=== PATIENT | female | born 1965 | race Caucasian/White ===

== ENCOUNTER 2024-09-30 17:02 | Emergency (ER) | payer MEDICAID, SELFPAY ==
[2024-09-30 17:04] VITALS: BP 164/67; PULSE 106; RESP 18; TEMP 35.9; O2SAT 98; BMI 20.7
--- NOTE | 2024-09-30 17:24 | EKG12_ITS ---
Test Reason : Blood Pressure : */* mmHG Vent. Rate : 62 BPM Atrial Rate : 62 BPM P-R Int : 138 ms QRS Dur : 86 ms QT Int : 412 ms P-R-T Axes : 42 28 47 degrees QTcB Int : 418 ms Normal sinus rhythm Normal ECG Confirmed by DANILO CARTER, SEDRICK ([id number]), purchase request editor ANDIE FERRERA ([id number]) on 10/01/2024 11:11:31 AM Referred By: Confirmed By: SEDRICK CARRASCO MD
--- NOTE | 2024-09-30 17:35 | EX.ED.DYSGE1 ---
HPI History of Present Illness Chief Complaint: Abn Labs Detail of Chief Complaint: My labs are abnormal. Informant: patient and spouse/S.O. Onset/Context/Timing Onset: - (Blood test results are abnormal. She does not feel which tests were abnormal) Context: - (Unknown) Timing: - (Unknown) Quality: Unknown Location: Unknown Current Severity: Unknown Maximum Severity: Unknown Worsened by: Nothing Relieved by: Nothing Associated Symptoms Associated Symptoms: Polyuria, polydipsia and blood sugars greater than 400 for greater than 1 m Narrative Narrative: Patient is a 59-year-old woman with type 2 diabetes on insulin regimen who had blood work done at [place] [facility] [place]. She was called and told her blood work is abnormal. They were upset that she came here. She informed that her insurance coverage is through the hospital. She does endorse smoking. She denies drinking. She does use marijuana. She has not used marijuana in 1 week. She is uncertain of all of her meds. Patient states last week she had fever, subjective, chills, decreased appetite and decreased intake. She has not had fever or chills since last week. She denies headache, photophobia, change in vision, ringing or ears or sore throat. She denies rhinorrhea, congestion or postnasal drainage. She does endorse nonproductive cough. She denies chest discomfort. She denies abdominal pain, nausea, vomiting or diarrhea. She denies dysuria, hematuria or urgency. Patient does endorse polyuria, polydipsia, nocturia, thirst and dry mouth; she denies orthostatic symptoms. Prior similar symptoms: Yes Recent Illness/Hospitalization: No PFSH PFS Medical History (Updated 09/30/24 @ 22:[address] Roberto Carlos Jasso MD) Type 2 diabetes mellitus Home Medications ?Medication ?Instructions ?Recorded ?Last Taken ?Type nitrofurantoin 100 mg PO Q12 #14 CAPSULES 09/30/24 Unknown Rx monohydrate/macrocrystals 100 mg capsule Allergy/AdvReac Type Severity Reaction Status Date / Time No Known Allergies Allergy Verified 09/30/24 17:03 Surgical History (Updated 09/30/24 @ 17:44 by Chandni Pratt) H/O tubal ligation Social History (Updated 09/30/24 @ 17:[address] Roberto Carlos Jasso MD) household members: significant other Smoking Status: Current every day smoker tobacco type: cigarettes alcohol intake: former substance use type: marijuana ROS ROS ED Constitutional Constitutional ED: Reports chills, subjective, sweats and other Details: Last week. Eyes Eyes: Reports blurry vision bilateral; Denies change in vision or diplopia ENT ENT ED: Reports other Details: Thirst and dry mouth ; Denies ear pain, rhinorrhea or sore throat Cardiovascular Cardiovascular: Denies chest pain, orthopnea, palpitations or paroxysmal nocturnal dyspnea Respiratory/Chest Respiratory/Chest: Reports cough; Denies dyspnea, dyspnea on exertion, orthopnea, paroxysmal nocturnal dyspnea or sputum Gastrointestinal Gastrointestinal: Denies abdominal pain, diarrhea, nausea or vomiting Genitourinary Genitourinary ED: Reports urinary frequency; Denies dysuria or hematuria Musculoskeletal Musculoskeletal: Denies arthralgias, back pain or myalgias Integumentary Denies rash Neurologic Neurologic: Reports weakness; Denies paresthesias Endocrine Endocrinology: Denies polydipsia or polyuria Hematologic/Lymphatic Hematologic/Lymphatic: Reports systems reviewed and no addt'l complaints, except as documented Allergic/Immunologic Allergic/Immunologic ED: Denies mouth swelling or tongue swelling EXAM Physical Exam Const Vital Signs: 09/30/24 17:04 09/30/24 17:40 09/30/24 19:03 Temperature 96.6 F L Temperature Source Temporal Pulse Rate 106 H 68 Respiratory Rate 18 13 Respiratory Effort Normal Respiratory Pattern Normal Blood Pressure 164/67 H 149/74 H Blood Pressure Mean 99 99 Pulse Ox 98 96 Oxygen Delivery Method Room Air Room Air 09/30/24 21:00 Temperature Temperature Source Pulse Rate 86 Respiratory Rate 18 Respiratory Effort Respiratory Pattern Blood Pressure 148/78 H Blood Pressure Mean 101 Pulse Ox 98 Oxygen Delivery Method Room Air Positive well nourished and well developed Constitutional Narrative: Patient appears ill but not toxic. General Appearance ED: well developed; Negative for cyanotic, diaphoretic or pallor HEENT Reports dry mucous membranes HEENT Narrative: Head is atraumatic and normocephalic. Ears normal. Nares patent. Posterior pharynx is normal. Mouth ED: Yes dry mucous membranes Mouth: dry mucous membranes Eyes PERRL and EOMs intact bilaterally General Eye ED: Negative for pale conjunctiva or scleral icterus Neck no lymphadenopathy, supple and no JVD Chest Wall inspection of chest normal and palpation of chest normal Resp normal respiratory effort and clear to auscultation bilaterally Cardio regular rhythm, S1 normal heart sound, S2 normal heart sound and no murmurs Rate: tachycardic GI normal to inspection, nondistended, normoactive bowel sounds, non-tender, non-distended and no masses; Negative for hepatosplenomegaly Auscultation: normoactive bowel sounds Palpation: soft Back/Spine no CVA tenderness Extremity normal to inspection General Extremety ED: Negative for edema or tenderness General Extremity: Negative for edema Neuro oriented x3, CN's II-XII intact bilaterally and no sensory deficits noted Sensorium / Orientation: alert Motor Exam: strength 5/5 throughout Psych mental status grossly normal Skin no rashes or lesions noted, no wounds and No skin turgor normal General Skin Exam: Negative for elasticity normal, jaundice or pallor MDM MDM MDM Narrative Medical decision making narrative: Patient is a poor informant. Patient normally gets her care at the clinic near [facility]. There is a urgent care visit for physical exam non-DOT drug screen [facility]. This was on July 11, 2024. Patient has symptoms consistent with hyperglycemia. Will obtain CMP to assess renal function, CO2 anion gap. UA to assess specific gravity, ketones and evidence of infection. CBC to assess white count H&H. Comprehensive metabolic panel was ordered because significant other made comment regarding liver enzymes possibly. History & Record Review Additional record(s) reviewed:: Prior outpatient record (For drug screen [facility]) Lab Data Attestation: I reviewed the patient's lab results. Lab results narrative: White count is elevated 18.7 thousand. There is a shift. H&H and indices are unremarkable. Comprehensive metabolic panel reveals elevation of BUN at 22 with a BUN to creatinine ratio of 27:1. She has mild hyponatremia and hypokalemia. Glucose is elevated at 306 with a normal CO2 anion gap. Liver enzymes are unremarkable. Patient has not been able to urinate. She is presently receiving IV fluids since clinically she is dehydrated. She will receive insulin for her elevated glucose. Labs: Laboratory Results - last 24 hr 09/30/24 09/30/24 09/30/24 17:30 19:11 19:53 WBC 18.7 H RBC 3.84 L Hgb 12.4 Hct 35.6 L MCV 92.7 MCH 32.3 H MCHC 34.8 RDW Std Deviation 42.6 RDW Coeff of Zi 12.5 Plt Count 363 MPV 9.9 Immature Gran % (Auto) 1.900 H Neut % (Auto) 83.3 H Lymph % (Auto) 8.[address] [place] % (Auto) 5.5 Eos % (Auto) 0.5 Baso % (Auto) 0.3 Absolute Neuts (auto) 15.6 H Absolute Lymphs (auto) 1.59 Nucleated RBC % 0 Sodium 132 L Potassium 3.1 L Chloride 98 Carbon Dioxide 23.4 Anion Gap 11 BUN 22 H Creatinine 0.82 Estim Creat Clear Calc 71.94 Est GFR (MDRD) Non-Af 83 BUN/Creatinine Ratio 27.2 H Glucose 306 H Calcium 8.4 Total Bilirubin 0.40 AST 22 ALT 35 Alkaline Phosphatase 221 H Total Protein 6.9 Albumin 2.9 L Globulin 4.0 Albumin/Globulin Ratio 0.7 L Urine Color Straw Urine Clarity Cloudy Urine pH 6.0 Ur Specific [place] 1.010 Urine Protein 30 H Urine Glucose (UA) 250 H Urine Ketones Negative Urine Occult Blood 150 H Urine Nitrite Negative Urine Bilirubin Negative Urine Urobilinogen Normal Ur Leukocyte Esterase 500 H Urine RBC 0-5 SEEN Urine WBC >100 SEEN Ur Squamous Epith Cells 0-5 SEEN Urine Bacteria 4+ Urine Mucus 0 SEEN POC Glucose 232 H Repeat blood sugar 232. Urine is consistent with urinary tract infection. Will send culture and start on antibiotics. This probably is the explanation for her elevated blood sugar. This would be the cause of her elevated white count. Since she is not hemodynamically stable febrile will discharge to home on oral meds. There is no concern for pyelonephritis. Treatment and Re-Evaluation :: On reevaluation patient's heart rate improved with IV fluids. Blood sugar improved with insulin. Discharge Plan Triage Chief Complaint: Abn Labs ED Provider: Roberto Carlos Jasso Dx/Rx/DC Orders Clinical Impression: Uncontrolled type 2 diabetes mellitus with hyperglycemia, with long-term current use of insulin, Acute cystitis, Leukocytosis, Elevated blood pressure reading with diagnosis of hypertension, Tachycardia, Acute dehydration Instructions: ED Diabetic Hyperglycemia, ED Cystitis Female Adult Prescriptions: New nitrofurantoin monohyd/m-cryst 100 mg capsule 100 mg PO Q12 Qty: 14 0RF Primary Care Provider: Care Physician,No Primary Referrals: Care Physician,No Primary [Primary Care Provider] - Doctor,Your [Non-Staff] - 3-5 Days Print Language: Pakistani Disposition Disposition: Home, Self Care
[2024-09-30 17:48] LABS: Absolute Lymphocyte Count 1.59 X10^3/uL (0.83-4.51); Absolute Neutrophil Count 15.6 X10^3/uL (2.0-7.7); Basophil# 0.05 X10^3/uL; Basophil% 0.3 % (0-1); Eosinophil# 0.09 X10^3/uL; Eosinophils% 0.5 % (0-5); Hematocrit 35.6 % (37-47); Hemoglobin 12.4 g/dL (12.0-15.0); Lymphocyte # 1.59 X10^3/ul (0.83-4.51); Lymphocyte % 8.5 % (19-41); Mean Corp Hgb Conc 34.8 g/dL (32-36); Mean Corpuscular Hgb 32.3 pg (27.0-32.0); Mean Corpuscular Volume 92.7 fL (81-99); Mean Platelet Vol. 9.9 fl (6.2-12.0); Monocyte# 1.02 X10^3/uL; Monocyte% 5.5 % (0-10); NRBC Flagged by Analyzer 0 % (0-5); Neutrophil % 83.3 % (47-70); Platelet Count 363 K/mm3 (150-450); RBC Distribution Width CV 12.5 % (11.6-14.6); RBC Distribution Width SD 42.6 fl (35.1-43.9); Red Blood Count 3.84 M/mm3 (4.2-5.4); White Blood Count 18.7 K/mm3 (4.4-11.0)
[2024-09-30] MEDS: 0.9% Normal Saline (1000mL) 1,000 ML 1000 ML IV (17:56)
[2024-09-30 18:11] LABS: ALB/GLOB Ratio 0.7 RATIO (0.9-2.4); AST(SGOT) 22 U/L (<=31); Alanine Aminotransfer ALT/SGPT 35 U/L (<=34); Albumin, Serum 2.9 g/dL (3.5-5.0); Alkaline Phosphatase 221 U/L (35-104); Anion Gap 11 (5-15); BUN 22 mg/dL (4-19); BUN/Creat Ratio 27.2 RATIO (10-20); Calcium,Total 8.4 mg/dL (7.6-11.0); Carbon Dioxide 23.4 mmol/L (21.0-32.0); Chloride 98 mmol/L (98-108); Creatinine, Serum 0.82 mg/dL (0.70-1.20); EST Glomerular Filtration Rate 83 (>60); Estimated Creatinine Clearance 71.94 ml/min (50-250); Glucose 306 mg/dL (70-99); Potassium 3.1 mmol/L (3.3-5.1); Protein, Total 6.9 g/dL (5.9-8.4); Sodium Level 132 mmol/L (133-145)
[2024-09-30 19:03] VITALS: BP 149/74; PULSE 68; RESP 13; O2SAT 96
[2024-09-30] MEDS: Insulin Lispro 100 UNIT/ML INSULN.PEN 7 UNIT SC (19:14)
[2024-09-30 19:16] LABS: Mucous, Urine 0 SEEN /hpf (<or=2+)
[2024-09-30 20:11] LABS: Bedside Glucose 232 mg/dL (74-106)
[2024-09-30 20:13] LABS: Color, Urine Straw (Yellow); Glucose, Dipstick 250 mg/dl (Normal); Ketone-Dipstick Negative (Negative); Leukocyte Esterase-Dipstick 500 /ul (Negative); Nitrite-Dipstick Negative (Negative); Occult Blood-Urine 150 /ul (Negative); Protein-Dipstick 30 mg/dl (Negative); Urine Bilirubin Dipstick Negative (Negative); Urine Clarity Cloudy (Clear); Urine Urobilinogen Normal (Normal)
[2024-09-30 21:00] VITALS: BP 148/78; PULSE 86; RESP 18; O2SAT 98
[2024-09-30 21:05] LABS: Red Blood Cells-Urine 0-5 SEEN /hpf (0-5); Squamous Epithelial Cells - UA 0-5 SEEN /hpf (5-10); White Blood Cells >100 SEEN /hpf (0-5)
[2024-09-30 21:06] LABS: Bacteria 4+ /hpf (None Seen)
[2024-09-30 22:17] VITALS: BP 142/71; PULSE 92; RESP 18; TEMP 36.8; O2SAT 96
[2024-09-30] MEDS: Nitrofurantoin Macrocrystals 100 MG Capsule PO (22:21)
--- NOTE | 2024-10-01 00:44 | EX.ED.DYSGE1 ---
HPI History of Present Illness Chief Complaint: Abn Labs [facility] Medical History (Updated 09/30/24 @ 22:[address] Roberto Carlos Jasso MD) Type 2 diabetes mellitus Home Medications ?Medication ?Instructions ?Recorded ?Last Taken ?Type nitrofurantoin 100 mg PO Q12 #14 CAPSULES 09/30/24 Unknown Rx monohydrate/macrocrystals 100 mg capsule Allergy/AdvReac Type Severity Reaction Status Date / Time No Known Allergies Allergy Verified 09/30/24 17:03 Surgical History (Updated 09/30/24 @ 17:44 by Chandni Pratt) H/O tubal ligation Social History (Updated 09/30/24 @ 17:[address] Roberto Carlos Jasso MD) household members: significant other Smoking Status: Current every day smoker tobacco type: cigarettes alcohol intake: former substance use type: marijuana EXAM Physical Exam Const Vital Signs: 09/30/24 17:04 09/30/24 17:40 09/30/24 19:03 Temperature 96.6 F L Temperature Source Temporal Pulse Rate 106 H 68 Respiratory Rate 18 13 Respiratory Effort Normal Respiratory Pattern Normal Blood Pressure 164/67 H 149/74 H Blood Pressure Mean 99 99 Pulse Ox 98 96 Oxygen Delivery Method Room Air Room Air 09/30/24 21:00 09/30/24 22:17 Temperature 98.2 F Temperature Source Pulse Rate 86 92 Respiratory Rate 18 18 Respiratory Effort Respiratory Pattern Blood Pressure 148/78 H 142/71 H Blood Pressure Mean 101 94 Pulse Ox 98 96 Oxygen Delivery Method Room Air [facility] MDM Lab Data Attestation: I reviewed the patient's lab results. Lab results narrative: White count is elevated 18.7 thousand. There is a shift. Electrolyte panel is remarkable for mild hyponatremia and hypokalemia. Glucose is elevated at 306 with normal CO2 anion gap. Urine is consistent with infection. Labs: Laboratory Results - last 24 hr 09/30/24 09/30/24 09/30/24 17:30 19:11 19:53 WBC 18.7 H RBC 3.84 L Hgb 12.4 Hct 35.6 L MCV 92.7 MCH 32.3 H MCHC 34.8 RDW Std Deviation 42.6 RDW Coeff of Zi 12.5 Plt Count 363 MPV 9.9 Immature Gran % (Auto) 1.900 H Neut % (Auto) 83.3 H Lymph % (Auto) 8.5 L [place] % (Auto) 5.5 Eos % (Auto) 0.5 Baso % (Auto) 0.3 Absolute Neuts (auto) 15.6 H Absolute Lymphs (auto) 1.59 Nucleated RBC % 0 Sodium 132 L Potassium 3.1 L Chloride 98 Carbon Dioxide 23.4 Anion Gap 11 BUN 22 H Creatinine 0.82 Estim Creat Clear Calc 71.94 Est GFR (MDRD) Non-Af 83 BUN/Creatinine Ratio 27.2 H Glucose 306 H Calcium 8.4 Total Bilirubin 0.40 AST 22 ALT 35 Alkaline Phosphatase 221 H Total Protein 6.9 Albumin 2.9 L Globulin 4.0 Albumin/Globulin Ratio 0.7 L Urine Color Straw Urine Clarity Cloudy Urine pH 6.0 Ur Specific [place] 1.010 Urine Protein 30 H Urine Glucose (UA) 250 H Urine Ketones Negative Urine Occult Blood 150 H Urine Nitrite Negative Urine Bilirubin Negative Urine Urobilinogen Normal Ur Leukocyte Esterase 500 H Urine RBC 0-5 SEEN Urine WBC >100 SEEN Ur Squamous Epith Cells 0-5 SEEN Urine Bacteria 4+ Urine Mucus 0 SEEN POC Glucose 232 H EKG Initial EKG: Attestation: I personally reviewed and interpreted this EKG as follows: Interpretation: Sinus Rhythm (Rate is 62. EKG is normal. VA interval is 138 ms. Cures duration 86 ms. QT duration 4 and 12 ms. [place] is normal.) Discharge Plan Triage Chief Complaint: Abn Labs ED Provider: Roberto Carlos Jasso Dx/Rx/DC Orders Clinical Impression: Uncontrolled type 2 diabetes mellitus with hyperglycemia, with long-term current use of insulin, Acute cystitis, Leukocytosis, Elevated blood pressure reading with diagnosis of hypertension, Tachycardia, Acute dehydration Instructions: ED Diabetic Hyperglycemia, ED Cystitis Female Adult Prescriptions: New nitrofurantoin monohyd/m-cryst 100 mg capsule 100 mg PO Q12 Qty: 14 0RF Primary Care Provider: Care Physician,No Primary Referrals: Care Physician,No Primary [Primary Care Provider] - Doctor,Your [Non-Staff] - 3-5 Days Print Language: Camb[place]ian Disposition Disposition: Home, Self Care Discharge Date/Time: 09/30/24 22:22
== END 2024-09-30 22:22 | disposition home or self-care (01) ==
PROVIDERS: Emergency Provider Emergency Medicine; Visit Provider Emergency Medicine
DX: E11.65 Type 2 diabetes mellitus with hyperglycemia (principal); Z79.4 Long term (current) use of insulin; F12.90 Cannabis use, unspecified, uncomplicated; I10 Essential (primary) hypertension; N30.00 Acute cystitis without hematuria; F17.210 Nicotine dependence, cigarettes, uncomplicated; D72.829 Elevated white blood cell count, unspecified; E86.0 Dehydration; R00.0 Tachycardia, unspecified
CPT/HCPCS: 80053; 81001; 82962; 85025; 93005; 96360; 99284